=== PATIENT | female | born 2000 | race Asian ===

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

== ENCOUNTER → 2019-01-18 10:42 | Outpatient (CLI) | payer OTHER, SELFPAY ==
[2016-01-09 13:25] VITALS: BMI 20.4
[2019-01-18 12:54] LABS: Absolute Lymphocyte Count 2.13 X10^3/ul (0.83-4.51); Absolute Neutrophil Count 2.2 X10^3/uL (2.0-7.7); Basophil# 0.02 X10^3/uL; Basophil% 0.4 % (0-1); Eosinophil# 0.03 X10^3/uL; Eosinophils% 0.6 % (0-5); Hematocrit 39.2 % (37-47); Hemoglobin 12.7 g/dl (12.0-15.0); Lymphocyte # 2.13 X10^3/ul (4.0); Lymphocyte % 44.7 % (19-41); Mean Corp Hgb Conc 32.4 g/gl (32-36); Mean Corpuscular Hgb 29.7 pg (27.0-32.0); Mean Corpuscular Volume 91.6 fL (81-99); Mean Platelet Vol. 9.1 fl (6.2-12.0); Monocyte# 0.33 X10^3/uL; Monocyte% 6.9 % (0-10); Neutrophil # 2.24 X10^3/uL (2.7-7.7); Neutrophil % 47.2 % (47-70); Platelet Count 350 K/mm3 (150-450); RBC Distribution Width CV 12.9 % (11.6-14.6); RBC Distribution Width SD 43.1 fl (35.1-43.9); Red Blood Count 4.28 M/mm3 (4.2-5.4); White Blood Count 4.8 K/mm3 (4.4-11.0)
[2019-01-18 13:03] LABS: POSITIVE COUNT NO; POSITIVE DIFFERENTIAL NO; POSITIVE MORPHOLOGY NO
[2019-01-18 13:05] LABS: Erythrocyte Sedimentation Rate < 1 mm/hr (0-20)
[2019-01-18 13:16] LABS: Vitamin D,25 Hydroxy 36.2 ng/mL (29.95-100.01)
[2019-01-18 14:08] LABS: AST(SGOT) 14 U/L (15-37); Alanine Aminotransfer ALT/SGPT 16 U/L (13-56); Albumin, Serum 4.1 g/dL (3.2-5.0); Alkaline Phosphatase 49 U/L (45-117); BUN 7 mg/dL (7-18); Creatinine, Serum 0.72 mg/dL (0.55-1.02); EST Glomerular Filtration Rate 110 mL/min (>60); Est Glom Filt Rate - Afr Amer 133 mL/min (>60); Globulin 3.8 g/dL (2.2-4.2); Glucose 58 mg/dL (74-106); Protein, Total 7.9 g/dL (6.4-8.2); Rheumatoid Factor < 10.0 IU/mL (<15); Thyroid Stim Hormone (TSH) 0.83 uIU/mL (0.358-3.74); Uric Acid 3.7 mg/dL (2.6-6.0)
[2019-01-21 13:38] LABS: ANTINUCLEAR ANTIBODIES DIRECT Negative (Negative)
== END ==
PROVIDERS: Family Provider Family Medicine; PCP Family Medicine; Referring Provider Family Medicine; Visit Provider Specialist
DX: L50.9 Urticaria, unspecified (principal); E55.9 Vitamin D deficiency, unspecified; E07.9 Disorder of thyroid, unspecified
CPT/HCPCS: 36415; 80076; 82306; 82565; 82947; 83520; 84443; 84520; 84550; 85025; 85652; 86038; 86431

== ENCOUNTER → 2019-10-22 09:05 | Outpatient (CLI) | payer OTHER, SELFPAY ==
[2016-01-09 13:25] VITALS: BMI 20.4
[2019-10-22 10:16] LABS: Absolute Lymphocyte Count 1.76 X10^3/uL (0.83-4.51); Basophil# 0.03 X10^3/uL; Basophil% 0.5 % (0-1); Eosinophil# 0.44 X10^3/uL; Eosinophils% 7.7 % (0-5); Hematocrit 40.9 % (37-47); Lymphocyte # 1.76 X10^3/ul (4.0); Lymphocyte % 30.9 % (19-41); Mean Corp Hgb Conc 31.8 g/dL (32-36); Mean Corpuscular Hgb 29.9 pg (27.0-32.0); Mean Platelet Vol. 9.7 fl (6.2-12.0); NRBC Flagged by Analyzer 0 % (0-5); Neutrophil # 3.04 X10^3/uL (2.7-7.7); Neutrophil % 53.5 % (47-70); Platelet Count 246 K/mm3 (150-450); RBC Distribution Width CV 12.4 % (11.6-14.6); RBC Distribution Width SD 43.2 fl (35.1-43.9); Red Blood Count 4.35 M/mm3 (4.2-5.4); White Blood Count 5.7 K/mm3 (4.4-11.0)
[2019-10-22 10:48] LABS: Internal QC Validated? YES +Cl - CLEAR BKGD; Monotest Negative (Negative)
[2019-10-22 10:58] LABS: ALB/GLOB Ratio 1.2 RATIO (0.9-2.4); AST(SGOT) 13 U/L (15-37); Alanine Aminotransfer ALT/SGPT 20 U/L (13-56); Albumin, Serum 3.8 g/dL (3.2-5.0); Alkaline Phosphatase 50 U/L (45-117); Anion Gap 9 (5-15); BUN 10 mg/dL (7-18); BUN/Creat Ratio 13.7 RATIO (10-20); CRP < 2.90 mg/L (0.0-3.0); Calcium,Total 8.7 mg/dL (8.5-10.1); Chloride 105 mmol/L (98-107); Creatinine, Serum 0.73 mg/dL (0.55-1.02); EST Glomerular Filtration Rate 108 mL/min (>60); Est Glom Filt Rate - Afr Amer 130 mL/min (>60); Globulin 3.3 g/dL (2.2-4.2); Glucose 82 mg/dL (74-106); Lipase 277 U/L (73-393); Potassium 3.6 mmol/L (3.5-5.1); Protein, Total 7.1 g/dL (6.4-8.2); Sodium Level 140 mmol/L (136-145)
== END ==
PROVIDERS: PCP Family Medicine; Referring Provider Family Medicine; Visit Provider Family Medicine
DX: R10.13 Epigastric pain (principal); K85.90 Acute pancreatitis without necrosis or infection, unspecified
CPT/HCPCS: 36415; 80053; 83690; 85025; 86140; 86308

== ENCOUNTER → 2020-05-14 10:29 | Outpatient (CLI) | payer OTHER, SELFPAY ==
[2019-10-24 14:03] VITALS: BMI 20.4
[2020-05-17 03:07] LABS: Chlamydia By Nucleic Acid AMP Negative (Negative)
[2020-05-17 06:08] LABS: Gonococcus By Nucleic Acid AMP Negative (Negative)
[2020-05-20 17:20] LABS: HPV Reflexed? NOT INDICATED
== END ==
PROVIDERS: PCP Family Medicine; Visit Provider Obstetrics & Gynecology
DX: Z12.4 Encounter for screening for malignant neoplasm of cervix (principal)
CPT/HCPCS: 87491; 87591; 88175; G0145

== ENCOUNTER → 2022-10-07 | Outpatient (CLI) | payer BC, SELFPAY ==
[2022-10-07 11:22] LABS: Erythrocyte Sedimentation Rate 5 mm/hr (0-30)
[2022-10-07 11:24] LABS: Absolute Neutrophil Count 3.1 X10^3/uL (2.0-7.7); Basophil# 0.02 X10^3/uL; Basophil% 0.4 % (0-1); Eosinophil# 0.04 X10^3/uL; Eosinophils% 0.8 % (0-5); Hematocrit 43.5 % (37-47); Hemoglobin 13.9 g/dL (12.0-15.0); Lymphocyte % 30.9 % (19-41); Mean Corpuscular Hgb 29.1 pg (27.0-32.0); Mean Platelet Vol. 8.4 fl (6.2-12.0); Monocyte# 0.37 X10^3/uL; Monocyte% 7.1 % (0-10); NRBC Flagged by Analyzer 0 % (0-5); Neutrophil # 3.13 X10^3/uL (2.7-7.7); Neutrophil % 60.4 % (47-70); Platelet Count 367 K/mm3 (150-450); RBC Distribution Width CV 13.2 % (11.6-14.6); RBC Distribution Width SD 44.1 fl (35.1-43.9); Red Blood Count 4.78 M/mm3 (4.2-5.4); White Blood Count 5.2 K/mm3 (4.4-11.0)
[2022-10-07 11:31] LABS: ALB/GLOB Ratio 1.2 RATIO (0.9-2.4); AST(SGOT) 22 U/L (15-37); Alanine Aminotransfer ALT/SGPT 47 U/L (13-56); Albumin, Serum 4.7 g/dL (3.2-5.0); Alkaline Phosphatase 109 U/L (45-117); Anion Gap 12 (5-15); BUN 14 mg/dL (7-18); BUN/Creat Ratio 17.1 RATIO (10-20); CRP < 2.90 mg/L (0.0-3.0); Calcium,Total 9.5 mg/dL (8.5-10.1); Chloride 99 mmol/L (98-107); Creatinine, Serum 0.82 mg/dL (0.55-1.02); EST Glomerular Filtration Rate 91 mL/min (>60); Est Glom Filt Rate - Afr Amer 111 mL/min (>60); Globulin 3.9 g/dL (2.2-4.2); Glucose 80 mg/dL (74-106); LDH 255 U/L (84-246); Potassium 3.8 mmol/L (3.5-5.1); Protein, Total 8.6 g/dL (6.4-8.2); Sodium Level 136 mmol/L (136-145)
[2022-10-08 14:09] LABS: Anti-Centromere B Ab <0.2 AI (0.0-0.9); Anti-Chromatin <0.2 AI (0.0-0.9); Anti-Jo <0.2 AI (0.0-0.9); Anti-Scleroderma-70 AB <0.2 AI (0.0-0.9); RNP Ab <0.2 AI (0.0-0.9); SJOGREN'S Anti-SS-A test < 0.2 AI (0.0-0.9); SJOGREN'S Anti-SS-B test < 0.2 AI (0.0-0.9); Smith Ab <0.2 AI (0.0-0.9)
[2022-10-08 15:08] LABS: Endomysial Antibody IgA Negative (Negative); Immunoglobulin A 69 mg/dL (87-352)
[2022-10-08 19:41] LABS: t-Transglutaminase IgA <2 U/mL (0-3)
[2022-10-08 19:43] LABS: Anti-dsDNA Ab 1 IU/mL (0-9)
[2022-10-13 15:08] LABS: Albumin 4.5 g/dL (2.9-4.4); Alpha-1-Globulins 0.2 g/dL (0.0-0.4); Alpha-2-Globulins 0.9 g/dL (0.4-1.0); Cytoplasmic Ab (C-ANCA) <1:20 titer (Neg:<1:20); Gamma Globulin 1.3 g/dL (0.4-1.8); Immunoglobulin A 66 mg/dL (87-352); Immunoglobulin E 89 IU/mL (6-495); Immunoglobulin G 1274 mg/dL (586-1602); Immunoglobulin M 121 mg/dL (26-217); PROEL- TOTAL PROTEIN 8.2 g/dL (6.0-8.5)
[2022-10-13 18:50] LABS: Perinuclear Ab (P-ANCA) <1:20 titer (Neg:<1:20)
== END | disposition home or self-care (01) ==
PROVIDERS: PCP Family Medicine; Visit Provider Internal Medicine Gastroenterology
DX: K55.1 Chronic vascular disorders of intestine (principal); K31.84 Gastroparesis
CPT/HCPCS: 36415; 80053; 82784; 82785; 83516; 83615; 84165; 85025; 85652; 86140; 86225; 86235; 86255; 86256; 86334

== ENCOUNTER → 2025-07-04 | Outpatient (CLI) | payer OTHER, SELFPAY ==
--- NOTE | 2025-07-04 07:48 | RAD_ITS ---
PROCEDURE: UPPER GI/W SMALL BOWEL 07/04/2025 REASON FOR EXAM: SMA SYNDROME TECHNIQUE: UPPER GI/W SMALL BOWEL FLUOROSCOPIC TIME: 115 seconds. Dose: 24.6 mGy. COMPARISON: None. FINDINGS: Thoracic and lumbar posterior fixation devices are seen, with apparent separation of the bilateral L3 pedicle screws from the posterior fixation rods. Also, fracture of one of the two L3 pedicle screws is also noted. The esophagus is unremarkable in appearance, without evidence of persistent stenosis or mucosal disease. Within the time of imaging, gastroesophageal reflux was not elicited. The stomach and duodenum show no abnormality. Satisfactory gastric emptying of the liquid contents was seen during this examination. Normal appearance of the jejunum and ileum is seen, without delay in passage. Normal appearance of the terminal ileum is seen. Contrast material is seen within the colon by the 30 minute film. No mass or mass effect is seen. RAD/Upper GI/w Small Bowel IMPRESSION: 1. Negative upper GI series. 2. Unremarkable small-bowel series, with prompt passage of contrast extending t o the colon by 30 minutes. 3. Thoracic and lumbar posterior fixation devices are seen, with apparent separ ation of the bilateral L3 pedicle screws from the posterior fixation rods. Also, fracture of one of the two L3 pedicle screws is also noted. Reading Location: [facility]
--- OUTSIDE RECORDS SUMMARY | 2025-07-04 08:06 | XMS RPT_ITS | CCD ---
Author Organization [facility] Care Team Providers Care Human Resources Temp Name Role Phone IDANIA WRIGHT Unavailable Unavailable REFERRED, SELF Unavailable Unavailable IDANIA WRIGHT Unavailable Unavailable GEOVANI KATHLEEN Unavailable Unavailable REFERRED, SELF Unavailable Unavailable IDANIA WRIGHT Unavailable Unavailable ANNIE SYSTEMS DEVELOPMENT CONSULTANT-TAXATION CONSULTANT, ZARI Rohit Primary Care Physicia n ANNIE SYSTEMS DEVELOPMENT CONSULTANT-TAXATION CONSULTANT, ZARI S Attending Unava ilable ANNIE SYSTEMS DEVELOPMENT CONSULTANT-TAXATION CONSULTANT, [facility] Primary Care Unava ilable ANNIE SYSTEMS DEVELOPMENT CONSULTANT-TAXATION CONSULTANT, ZARI S Attending Unava ilable ANNIE SYSTEMS DEVELOPMENT CONSULTANT-TAXATION CONSULTANT, [facility] S Primary Care Unava ilable Danielle Sandhu Attending Unavailable Moore, Kevin Referring Unavailable Ingold STONE CRUSHER OPERATOR, [facility] Primary Care Unavailable EdsonDanielle Attending Unavailable Moore, Kevin Primary Care Unavailable Moore, Kevin Referring Unavailable EdsonDanielle Referring Unavailable Annie STONE CRUSHER OPERATOR, [facility] Primary Care Unavailable Danielle Sandhu Attending Unavailable EdsonDanielle Attending Unavailable EdsonDanielle Referring Unavailable Ingold STONE CRUSHER OPERATOR, [facility] Primary Care Unavailable Allergies Allergy Classification Reported Allergen(s) Allergy Type Date of Onset Reaction(s) Facility (2 sources) Latex; Translations: [latex] Allergy to substance 5 Skin irritation (disorder) [facility] (1 source) carrot allergenic extract Drug Allergy 5 [facility] (1 source) potato allergenic extract Drug Allergy 5 [facility] (1 source) nut - unspecified Drug allergy (disorder) 5 [facility] Medications Current Medications Medication Drug Class(es) Dates Sig (Normalized) Sig (Original) Dulcolax Laxative (1 source) Start: 03-14-2025 Dulcolax Laxative mg =, qDay, prn, 0 Refill(s) Start Date: 03/14/25 Status: Ordered Repeat number: 1 magnesium oxide 250 mg oral tablet (1 source) Start: 03-14-2025 take 1 mg by mouth once daily Magnesium 250 mg tablet mg = tab(s), Oral, qDay, 0 Refill(s) Start Date: 03/14/25 Status: Ordered Repeat number: 1 ondansetron 4 mg disintegrating oral tablet (1 source) Serotonin-3 Receptor Antagonist Start: 03-14-2025 ondansetron 4 mg oral tablet, disintegrating Dose : 4 mg = 1 tab(s), Oral, q8h, PRN Nausea/Vomiting, # 20 tab(s), 3 Refill(s), Pharmacy: [id number], 157, cm, 03/14/25 8:28:00 EDT, Height, kg, 03/14/25 8:28:00 EDT, Dosing Weight Start Date: 03/14/25 Status: Ordered Quantity: 20.0 Unit: tab(s) Repeat number: 4 polyethylene glycol 3350 84841 mg powder for oral solution (1 source) Osmotic Laxative Start: 03-14-2025 take 17 doses by mouth twice daily as needed MiraLax oral powder for reconstitution Dose : 17 gram(s) =, Oral, BID, prn, # 238 gram(s), 0 Refill(s) Start Date: 03/14/25 Status: Ordered Quantity: 238.0 Unit: g Repeat number: 1 SUMAtriptan 50 mg oral tablet (1 source) Serotonin-1b and Serotonin-1d Receptor Agonist Start: 03-14-2025 SUMAtriptan 50 mg oral tablet Dose : 50 mg = 1 tab(s), Oral, qDay, PRN as needed for migraine headache, 1 tab onset , may repeat in 2 hrs. MAX 4 tab(s)/24hrs, # 9 tab(s), 3 Refill(s), Pharmacy: [id number], 157, cm, 03/14/25 8:28:00 EDT, Height, kg, 03/14/25 8:28:00 EDT, Dosing Weight Start Date: 03/14/25 Status: Ordered Quantity: 9.0 Unit: tab(s) Repeat number: 4 Problems Problem Classification Problem Date Documented Da te Episodic/Chronic Headache; including migraine (1 source) Migraine 03-14-2025 Chronic Nausea and vomiting (2 sources) Nausea with vomiting, unspecified; Translations: [Nausea with vomiting, unspecified] Onset: 06-17-2025 Episodic Other acquired deformities (1 source) Scoliosis deformity of spine 03-14-2025 Chronic Other bone disease and musculoskeletal deformities (1 source) Osteopenia 03-14-2025 Episodic Other disorders of stomach and duodenum (1 source) Gastroparesis syndrome 03-14-2025 Episodic Other disorders of stomach and duodenum (2 sources) Gastroparesis; Translations: [Gastroparesis] Onset: 06-17-2025 Episodic Other gastrointestinal disorders (2 sources) Abdominal distension (gaseous); Translations: [Abdominal distension (gaseous)] Onset: 06-17-2025 Episodic Peripheral and visceral atherosclerosis (1 source) 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 Results Test Name Value Interpretation Reference Range Facility Gastroenterology Visit Repor ton 06-17-2025 Gastroenterology Visit Report [facility] [address] [place] [address] OFFICE VISIT Date of Service: 06/17/25 MR#: [id number] Acct: [id number] Name: JOSE GUARDADO Rep #: [id number] : 2000 Provider: DESIREE kellogg Age/Sex: 25/F Location: [facility] Status: Signed Intake Vital Signs 03/22/25 10:25 06/17/25 09:12 Height 5 ft 1 in 5 ft 1 in Weight: 121 lb 6 oz BMI 22.9 BP 104/72 Respiration 16 Pulse 62 Temp 98.2 F Temp Source Temporal Pulse Oximetry (%) 98 Oxygen Delivery Method room air Intake Visit Reasons: GASTROPARESIS HX OF SMA SYNDROME Chief Complaint: to get established Roll Repairer Required: No Accompanied by: Self Is patient in pain?: No Allergies carrot Allergy (Intermediate, Verified 06/17/25 09:11) Hives latex Allergy (Intermediate, Verified 06/17/25 09:11) Other nut - unspecified Allergy (Intermediate, Verified 06/17/25 09:11) Hives potato Allergy (Intermediate, Verified 06/17/25 09:11) Hives Medications ???Medication ???Instructions ???Recorded ???Confirmed ???Type magnesium oxide 250 mg PO QDAY 04/29/25 06/17/25 H istory ondansetron 4 mg disintegrating 4 mg PO Q8H 04/29/25 06/17/25 Hist ory tablet sumatriptan succinate 50 mg tablet See Rx Instructions PO .COMPLEX 04/29/25 06/17/25 History linaclotide 290 mcg capsule 290 mcg PO QAM #90 caps 06/17/25 1 08/17/24 Rx (Linzess) polyethylene glycol 3350 17 4 g PO ONCE 06/17/25 06/17/25 Hist ory gram/dose oral powder (Miralax) PFSH Medical History Migraines Anxiety MDD (major depressive disorder) PCOS (polycystic ovarian syndrome) Acute insomnia Osteopenia Scoliosis Hx of pancreatitis Ulcer Acid reflux Constipation Nausea Abdominal pain Surgical History History of back surgery Family History Father Hypertension High cholesterol Mother Thyroid disorder Social History household members: family Smoking Status: Never smoker alcohol intake: never substance use type: does not use caffeine: Yes what type of physical activity do you participate in: running, bicycling and weight training frequency: 3-4 times per week seatbelt use: always HPI HPI Chief Complaint: to get established Details: OV Dr. Friend 10/07/2022 JOSE CANELA, is a 22 F who presents to the office today for Initial consult. PMH amenorrhea; osteopenia; PCOS; insomnia; pancreatitis, suspected; gastroparesis. During college () Jose developed abdominal pain, nausea and emesis. These were occurring on a daily basis with increased severity which progressively became worse. She did present to an outside ED where she recalls being told she had pancreatitis, though this diagnosis has since been questioned. Because of the severity of her nausea and emesis she began changing her diet to reduce her symptoms which was helpful. However, this has caused her to avoid a large number of foods and will sometimes utilize a liquid diet only. These dietary changes have resulted in weight loss to 70lbs July,. During workup and seeing specialists she has felt very traumatized as there was much focus on an eating disorder as the primary cause of her symptoms as opposed to a reactionary result of her symptoms. Some imaging as noted below. She additionally reports gastric emptying study and endoscopies, records unavailable. The resulting diagnosis she received from this outside workup is gastroparesis and SMA. Previously utilized medications include Zofran, reglan, scopolamine, Ativan without noticeable improvement. US RUQ 2.8.20 without acute/chronic abnormality. CT abd/pel 2.8.20 moderate gaseous and fluid distention of colon with distention of the stomach and small bowel without inflammatory changes; thickened endometrium. XRay acute abdominal series 2.8.20 without evidence of SBO. MRA abd 2.8.20 aortomesenteric angle 21 degrees and distance 4mm, both measurements below expected findings consistent with SMA. CT abd 12.8.21 without acute/chronic abnormality. Bone Density 12.15.21 with noted osteopenia MRA abd 1.15.22 aortomesenteric angle 21 degrees with distance 4mm, both measurements below expected findings consistent with SMA. *BGI established 2.23.23 with referral from PCP for history as noted above. Nausea continues daily with emesis sometimes occurring multiple times a day; sometimes will go for several days without emesis and early satiety. BM varies between constipation of no BM and diarrhea, dependent on her diet at the time. She is open to seeing mental health services. Weight today 100lbs. (1) (more content not included)... Normal [facility] .Auto Diffon 03-14-2025 Basophil, Absolute 0.0 10 3/mcL Normal 0.0-0.3 [facility] Comment on above: Performed By: #### B 12 #### [facility] [address] [place] [address] #### CMP, CBC, VIDH, ANEU, GFR, ADIFF #### [facility] [address] [place], [place] [address] Basophils/100 WBC (Bld) 0.5 % Normal 0.0-2.5 [facility] Comment on above: Performed By: #### B 12 #### [place] [address] #### CMP, CBC, VIDH, ANEU, GFR, ADIFF #### [address] [address] Eosinophil, Absolute 0.0 10 3/mcL Normal 0.0-0.7 [facility] Comment on above: Performed By: #### B 12 #### [place] [address] #### CMP, CBC, VIDH, ANEU, GFR, ADIFF #### [address] [address] Eosinophils/100 WBC (Bld) 0.3 % Normal 0.0-6.0 [facility] Comment on above: Performed By: #### B 12 #### [place] [address] #### CMP, CBC, VIDH, ANEU, GFR, ADIFF #### [address] [address] Lymphocyte, Absolute 1.8 10 3/mcL Normal 0.9-4.3 [facility] Comment on above: Performed By: #### B 12 #### [place] [address] #### CMP, CBC, VIDH, ANEU, GFR, ADIFF #### [address] [address] Lymphocytes/100 WBC (Bld) 37.2 % Normal 20.0-40.0 [facility] Comment on above: Performed By: #### B 12 #### [place] [address] #### CMP, CBC, VIDH, ANEU, GFR, ADIFF #### [address] [address] Monocyte, Absolute 0.4 10 3/mcL Normal 0.1-1.4 [facility] Comment on above: Performed By: #### B 12 #### [place] [address] #### CMP, CBC, VIDH, ANEU, GFR, ADIFF #### [address] [address] Monocytes/100 WBC (Bld) 8.7 % Normal 2.0-13.0 [facility] Comment on above: Performed By: #### B 12 #### [place] [address] #### CMP, CBC, VIDH, ANEU, GFR, ADIFF #### [address] [address] Neutrophils/100 WBC (Bld) 53.3 % Normal 50.0-75.0 [facility] Comment on above: Performed By: #### B 12 #### [place] [address] #### CMP, CBC, VIDH, ANEU, GFR, ADIFF #### [address] [address] .GFRon 03-14-2025 GFR/1.73 sq M.predicted among non-blacks MDRD (S/P/Bld) [Vol rate/Area] mL/min/{1.73_m2} Normal [facility] Comment on above: Result Comment: Stages of Chronic Kidney Disease (CKD) Stage Description eGFR(ml/min/1.73 sq.m.) CKD 1 Normal kidney function or >=90 normal kindney function with possible kidney damage (ex. Proteinuria) CKD 2 Kidney damage with mild loss 60-89 of kidney function CKD 3a Mild to moderate loss of kidney 45-59 function CKD 3b Moderate to severe loss of 30-44 of kindey function CKD 4 Severe loss of kidney function 15-29 CKD 5 Kidney failure <15 Note: (go live 2024) the eGFR calculation was updated to the 2020 CKD-EPI creatinine equation without a race factor to calculate the eGFR results. Performed By: #### B 12 #### [place] [address] #### CMP, CBC, VIDH, ANEU, GFR, ADIFF #### [address] [address] .NEUABSon 03-14-2025 Neutrophil, Absolute 2.6 10 3/mcL Normal 2.3-8.1 [facility] Comment on above: Performed By: #### B 12 #### [address] [address] #### CMP, CBC, VIDH, ANEU, GFR, ADIFF #### [address] [address] B12on 03-14-2025 Cobalamin (Vitamin B12) [Mass/Vol] 759 pg/mL Normal 211-911 [facility] Comment on above: Performed By: #### B 12 #### [place] [address] #### CMP, CBC, VIDH, ANEU, GFR, ADIFF #### [address] [address] CBCon 03-14-2025 Erythrocyte distribution width (RBC) [Ratio] 17.8 % High 11.5-15.5 [facility] Comment on above: Performed By: #### B 12 #### [place] [address] #### CMP, CBC, VIDH, ANEU, GFR, ADIFF #### [address] [address] Hematocrit (Bld) [Volume fraction] 38.3 % Normal 34.0-46.0 [facility] Comment on above: Performed By: #### B 12 #### [place] [address] #### CMP, CBC, VIDH, ANEU, GFR, ADIFF #### [address] [address] Hgb 12.3 G/dL Normal 12.0-16.0 [facility] Comment on above: Performed By: #### B 12 #### [place] [address] #### CMP, CBC, VIDH, ANEU, GFR, ADIFF #### [address] [address] MCH (RBC) [Entitic mass] 26.5 pg Low 27.0-33.0 [facility] Comment on above: Performed By: #### B 12 #### [place] [address] #### CMP, CBC, VIDH, ANEU, GFR, ADIFF #### [address] [address] MCHC 32.1 G/dL Normal 32.0-36.0 [facility] Comment on above: Performed By: #### B 12 #### [place] [address] #### CMP, CBC, VIDH, ANEU, GFR, ADIFF #### [address] [address] MCV (RBC) [Entitic vol] 82.4 fL Normal 80.0-99.0 [facility] Comment on above: Performed By: #### B 12 #### [place] [address] #### CMP, CBC, VIDH, ANEU, GFR, ADIFF #### [address] [address] Platelet 354 10 3/mcL Normal 150-450 [facility] Comment on above: Performed By: #### B 12 #### [place] [address] #### CMP, CBC, VIDH, ANEU, GFR, ADIFF #### [address] [address] Platelet mean volume (Bld) [Entitic vol] 7.1 fL Normal 6.6-10.5 [facility] Comment on above: Performed By: #### B 12 #### [place] [address] #### CMP, CBC, VIDH, ANEU, GFR, ADIFF #### [address] [address] RBC 4.65 10 6/mcL Normal 4.10-5.30 [facility] Comment on above: Performed By: #### B 12 #### [place] [address] #### CMP, CBC, VIDH, ANEU, GFR, ADIFF #### [address] [address] WBC 4.9 10 3/mcL Normal 4.5-10.8 [facility] Comment on above: Performed By: #### B 12 #### [place] [address] #### CMP, CBC, VIDH, ANEU, GFR, ADIFF #### [address] [address] CMPon 03-14-2025 Albumin Level 4.3 G/dL Normal 3.5-5.0 [facility] Comment on above: Performed By: #### B 12 #### [place] [address] #### CMP, CBC, VIDH, ANEU, GFR, ADIFF #### [address] [address] Albumin/Globulin [Mass ratio] 1.2 {ratio} Normal 1.1-2.5 [facility] Comment on above: Performed By: #### B 12 #### [place] [address] #### CMP, CBC, VIDH, ANEU, GFR, ADIFF #### [address] [address] ALP [Catalytic activity/Vol] 51 U/L Normal 40-135 [facility] Comment on above: Performed By: #### B 12 #### [place] [address] #### CMP, CBC, VIDH, ANEU, GFR, ADIFF #### [address] [address] ALT [Catalytic activity/Vol] 15 U/L Normal 14-59 [facility] Comment on above: Performed By: #### B 12 #### [place] [address] #### CMP, CBC, VIDH, ANEU, GFR, ADIFF #### [address] [address] AST [Catalytic activity/Vol] 6 U/L Low 10-40 [facility] Comment on above: Performed By: #### B 12 #### [place] [address] #### CMP, CBC, VIDH, ANEU, GFR, ADIFF #### [address] [address] Bili Total 0.6 mg/dL Normal 0.2-1.0 [facility] Comment on above: Result Comment: Use of this assay is not recommended for patients undergoing treatment with eltrombopag due to the potential for falsely elevated results. Performed By: #### B 12 #### [place] [address] #### CMP, CBC, VIDH, ANEU, GFR, ADIFF #### [place] [id number] BUN/Creatinine Ratio 21 ratio Normal 7-27 [facility] Comment on above: Performed By: #### B 12 #### [place] [address] #### CMP, CBC, VIDH, ANEU, GFR, ADIFF #### [address] [address] Calcium [Mass/Vol] 9.1 mg/dL Normal 8.4-10.2 [facility] Comment on above: Performed By: #### B 12 #### [place] [address] #### CMP, CBC, VIDH, ANEU, GFR, ADIFF #### [place] [id number] Chloride [Moles/Vol] 104 mmol/L Normal 98-107 [facility] Comment on above: Performed By: #### B 12 #### [place] [address] #### CMP, CBC, VIDH, ANEU, GFR, ADIFF #### [address] [address] CO2 [Moles/Vol] 27 mmol/L Normal 22-29 [facility] Comment on above: Performed By: #### B 12 #### [place] [address] #### CMP, CBC, VIDH, ANEU, GFR, ADIFF #### [address] [address] Creatinine [Mass/Vol] 0.71 mg/dL Normal 0.51-0.95 [facility] Comment on above: Performed By: #### B 12 #### [place] [address] #### CMP, CBC, VIDH, ANEU, GFR, ADIFF #### [address] [address] Electrolyte Balance 9.0 mEq/L Normal 4.0-15.0 [facility] Comment on above: Performed By: #### B 12 #### [place] [address] #### CMP, CBC, VIDH, ANEU, GFR, ADIFF #### [address] [address] Globulin 3.6 G/dL Normal 2.7-4.4 [facility] Comment on above: Performed By: #### B 12 #### [place] [address] #### CMP, CBC, VIDH, ANEU, GFR, ADIFF #### [address] [address] Glucose [Mass/Vol] 86 mg/dL Normal 70-105 [facility] Comment on above: Performed By: #### B 12 #### [place] [address] #### CMP, CBC, VIDH, ANEU, GFR, ADIFF #### [address] [address] Potassium [Moles/Vol] 4.1 mmol/L Normal 3.5-5.1 [facility] Comment on above: Performed By: #### B 12 #### [address] [address] #### CMP, CBC, VIDH, ANEU, GFR, ADIFF #### [address] [address] Sodium [Moles/Vol] 140 mmol/L Normal 136-145 [facility] Comment on above: Performed By: #### B 12 #### [place] [address] #### CMP, CBC, VIDH, ANEU, GFR, ADIFF #### [address] [address] Total Protein 7.9 G/dL Normal 6.4-8.2 [facility] Comment on above: Performed By: #### B 12 #### [place] [address] #### CMP, CBC, VIDH, ANEU, GFR, ADIFF #### [address] [address] Urea nitrogen [Mass/Vol] 15 mg/dL Normal 7-18 [facility] Comment on above: Performed By: #### B 12 #### [place] [address] #### CMP, CBC, VIDH, ANEU, GFR, ADIFF #### [address] [address] LABORATORYOrdered By: SYSTEM SYSTEM on 03-14-2025 25-hydroxyvitamin D3 [Mass/Vol] 48.4 ng/mL Invalid Interpretation Code AO ADM SS Comment on above: Interpretive Data: I nterpretive Values Based on Total 25(OH) Vitamin D: Deficient <20 ng/mL Insufficient 20 - <30 ng/mL Sufficient 30-100 ng/mL Albumin BCP dye [Mass/Vol] 4.3 G/dL Normal 3.5 - 5.0 G/dL AO ADM SS Albumin/Globulin [Mass ratio] 1.2 {ratio} Normal 1.1 - 2.5 ratio AO ADM SS ALP [Catalytic activity/Vol] 51 U/L Normal 40 - 135 U/L AO ADM SS ALT With P-5'-P [Catalytic activity/Vol] 15 U/L Normal 14 - 59 U/L AO ADM SS AST With P-5'-P [Catalytic activity/Vol] 6 U/L Low 10 - 40 U/L AO ADM SS Basophils (Bld) [#/Vol] 0.0 103/mcL Normal 0.0 - 0.3 10^3/mcL AO Workflow SS Basophils/100 WBC (Bld) 0.5 % Normal 0.0 - 2.5 % AO Workflow SS Bilirubin [Mass/Vol] 0.6 mg/dL Normal 0.2 - 1 .0 mg/dL AO ADM SS Comment on above: Interpretive Data: U se of this assay is not recommended for patients undergoing treatment with eltrombopag due to the potential for falsely elevated results. Calcium [Mass/Vol] 9.1 mg/dL Normal 8.4 - 10. 2 mg/dL AO ADM SS Chloride [Moles/Vol] 104 mmol/L Normal 98 - 10 7 mmol/L AO ADM SS CO2 [Moles/Vol] 27 mmol/L Normal 22 - 29 mmol/L AO ADM SS Cobalamin (Vitamin B12) [Mass/Vol] 759 pg/mL Normal 211 - 911 pg/mL AH ADM SS Creatinine [Mass/Vol] 0.71 mg/dL Normal 0.51 - 0.95 mg/dL AO ADM SS Electrolyte Balance 9.0 mEq/L Normal 4.0 - 15 .0 mEq/L AO ADM SS Eosinophil, Absolute 0.0 103/mcL Normal 0.0 - 0 .7 10^3/mcL AO Workflow SS Eosinophils/100 WBC (Bld) 0.3 % Normal 0.0 - 6.0 % AO Workflow SS Erythrocyte distribution width (RBC) [Ratio] 17.8 % High 11.5 - 15.5 % AO Workflow SS Estimated Glomerular Filtration Rate ml/min/1.73sqm Invalid Interpretation Code AO Chemistry S Comment on above: Interpretive Data: Stages of Chronic Kidney Disease (CKD) Stage Description eGFR(ml/min/1.73 sq.m.) CKD 1 Normal kidney function or >=90 normal kindney function with possible kidney damage (ex. Proteinuria) CKD 2 Kidney damage with mild loss 60-89 of kidney function CKD 3a Mild to moderate loss of kidney 45-59 function CKD 3b Moderate to severe loss of 30-44 of kindey function CKD 4 Severe loss of kidney function 15-29 CKD 5 Kidney failure <15 Note: (go live 2024) the eGFR calculation was updated to the 2020 CKD-EPI creatinine equation without a race factor to calculate the eGFR results. Globulin 3.6 G/dL Normal 2.7 - 4.4 G/dL AO ADM SS Glucose [Mass/Vol] 86 mg/dL Normal 70 - 105 mg/dL AO ADM SS Hematocrit (Bld) [Volume fraction] 38.3 % Normal 34.0 - 46.0 % AO Workflow SS Hemoglobin (Bld) [Mass/Vol] 12.3 G/dL Normal 12.0 - 16.0 G/dL AO Workflow SS Lymphocytes (Bld) [#/Vol] 1.8 103/mcL Normal 0.9 - 4.3 10^3/mcL AO Workflow SS Lymphocytes/100 WBC (Bld) 37.2 % Normal 20.0 - 40.0 % AO Workflow SS MCH (RBC) [Entitic mass] 26.5 pg Low 27.0 - 33.0 pg AO Workflow SS MCHC 32.1 G/dL Normal 32.0 - 36.0 G/dL AO Workflow SS MCV (RBC) [Entitic vol] 82.4 fL Normal 80.0 - 99.0 fL AO Workflow SS Monocytes (Bld) [#/Vol] 0.4 103/mcL Normal 0.1 - 1.4 10^3/mcL AO Workflow SS Monocytes/100 WBC (Bld) 8.7 % Normal 2.0 - 13.0 % AO Workflow SS Neutrophils (Bld) [#/Vol] 2.6 103/mcL Normal 2.3 - 8.1 10^3/mcL AO Workflow SS Neutrophils/100 WBC (Bld) 53.3 % Normal 50.0 - 75.0 % AO Workflow SS Platelet mean volume (Bld) [Entitic vol] 7.1 fL Normal 6.6 - 10.5 fL AO Workflow SS Platelets (Bld) [#/Vol] 354 103/mcL Normal 150 - 450 10^3/mcL AO Workflow SS Potassium [Moles/Vol] 4.1 mmol/L Normal 3.5 - 5.1 mmol/L AO ADM SS Protein [Mass/Vol] 7.9 G/dL Normal 6.4 - 8.2 G/dL AO ADM SS RBC (Bld) [#/Vol] 4.65 106/mcL Normal 4.10 - 5.3 0 10^6/mcL AO Workflow SS Sodium [Moles/Vol] 140 mmol/L Normal 136 - 145 mmol/L AO ADM SS Urea nitrogen [Mass/Vol] 15 mg/dL Normal 7 - 18 mg/dL AO ADM SS Urea nitrogen/Creatinine [Mass ratio] 21 ratio Normal 7 - 27 ratio AO ADM SS WBC (Bld) [#/Vol] 4.9 103/mcL Normal 4.5 - 10.8 10^3/mcL AO Workflow SS VIDHon 03-14-2025 Vit. D 25-Hydroxy 48.4 ng/mL Normal [facility] Comment on above: Result Comment: Inte rpretive Values Based on Total 25(OH) Vitamin D: Deficient <20 ng/mL Insufficient 20 - <30 ng/mL Sufficient 30-100 ng/mL Performed By: #### B 12 #### [address] [address] #### CMP, CBC, VIDH, ANEU, GFR, ADIFF #### [place] [id number] [place], [place] [address] CNOVon 12-17-2020 CNOV Office Visit (UCWSTR ) ----- JAIME CANELA ([id number]) 2000 F Date Time Provider Department 12/17/20 2:30 PM [facility] During your visit today, we recorded the following information about you: Temperature Pulse Respiration Blood pressure 96 degrees 53/minute 16/minute 108/76 Weight 45.7 kg Gisele Gómez APRN.CNP 12/17/2020 2:52 PM Signed ASSESSMENT/PLAN: 1. Eustachian tube dysfunction, left - ICD9: 381.81, ICD10: H69.82 - FLUTICASONE PROPIONATE 50 MCG/ACTUATION NASAL SPRAY,SUSPENSION - Follow-up with your PCP or ENT in 3-5 days if symptoms have not improved or sooner if symptoms worsen - Discussed red flags and need for immediate medical evaluation if any occur. - Discussed supportive care treatment with fluids, rest and analgesia. - Discussed expected course of illness DIETER Cleaning APRN.CNP 12/17/2020 2:59 PM Signed Subjective HPI Jaime Canela is a 20 year old female who presents with a pressure sensation in her left ear since this morning. She denies pain. States it feels like I am flying in a plane. Denies recent URI symptoms. Did have a slight headache the last 2 days but that has subsided. She has taken Advil at home. Review of Systems Constitutional: Negative for chills and fever. HENT: Positive for hearing loss. Negative for congestion, ear pain, sore throat and tinnitus. Respiratory: Negative for cough. Cardiovascular: Negative. Musculoskeletal: Negative for myalgias. Neurological: Positive for headaches. BP 108/76 Pulse (!) 53 Temp (!) 35.6 ?C (96 ?F) (Left Tympanic) Resp 16 Wt 45.7 kg (100 lb 12.8 oz) LMP 10/14/2015 SpO2 99% PAST MEDICAL HISTORY Diagnosis Date - NEGATIVE MEDICAL HISTORY PAST SURGICAL HISTORY Procedure Laterality Date - BACK SURGERY HX for scoliosis ALLERGIES Patient has no known allergies. MEDICATIONS fluticasone (FLONASE) 50 mcg/actuation nasal spray Use 2 Sprays in each nostril once daily. Rinse mouth after use. VENLAFAXINE HCL (EFFEXOR XR ORAL) Take 1 tablet by mouth once daily. No family history on file. Social History Tobacco Use - Smoking status: Never Smoker - Smokeless tobacco: Never Used Substance Use Topics - Alcohol use: Not on file - Drug use: Not on file Objective Physical Exam Vitals and nursing note reviewed. Constitutional: Appearance: Normal appearance. HENT: Right Ear: Hearing, tympanic membrane, ear canal and external ear normal. Left Ear: Tympanic membrane, ear canal and external ear normal. Decreased hearing noted. Tympanic membrane is not injected or erythematous. Nose: Nose normal. Cardiovascular: Rate and Rhythm: Normal rate. Pulmonary: Effort: Pulmonary effort is normal. Skin: General: Skin is warm and dry. Neurological: Mental Status: She is alert and oriented to person, place, and time. ASSESSMENT/PLAN: 1. Eustachian tube dysfunction, left - ICD9: 381.81, ICD10: H69.82 - FLUTICASONE PROPIONATE 50 MCG/ACTUATION NASAL SPRAY,SUSPENSION - Follow-up with your PCP or ENT in 3-5 days if symptoms have not improved or sooner if symptoms worsen - Discussed red flags and need for immediate medical evaluation if any occur. - Discussed supportive care treatment with fluids, rest and analgesia. - Discussed expected course of illness Gisele Gómez APRN.TAXATION CONSULTANT Referring Provider: SELF [[id number]] Allergies As of Date: 12/17/2020 (No Known Allergies) Date Reviewed: 12/17/2020 Reviewed by: Soo Harvey Ma - Fully Assessed Reason for Visit: Ear Problem [38] Cmt: LEFT ear pressure x this AM with intermittent ZUNIGA x 2 days Primary Visit Diagnosis:Eustachian tube dysfunction, left [H69.82] Order(s):fluticasone (FLONASE) 50 mcg/actuation nasal sprayUse 2 Sprays in each nostril once daily. Rinse mouth after use.Disp: 1 BottleRfl: 11 Prescriptions as of 12/17/2020 Sig: FLUTICASONE PROPIONATE 50 MCG* Use 2 Sprays in each nostril * EFFEXOR XR ORAL Take 1 tablet by mouth once d* Patient not taking: Reported on 12/17/2020 Problem List As Of Date: 12/17/2020 (None) Other instructions from your clinician: ASSESSMENT/PLAN: 1. Eustachian tube dysfunction, left - ICD9: 381.81, ICD10: H69.82 - FLUTICASONE PROPIONATE 50 MCG/ACTUATION NASAL SPRAY,SUSPENSION - Follow-up with your PCP or ENT in 3-5 days if symptoms have not improved or sooner if symptoms worsen - Discussed red flags and need for immediate medical evaluation if any occur. - Discussed supportive care treatment with fluids, rest and analgesia. - Discussed expected course of illness Gisele Gómez APRN.TAXATION CONSULTANT Prescriptions ordered this encounter Disp Refills Start End FLUTICASONE PROPIONATE 50 MCG/ACTUAT* 1 Timo* 11 12/17/2020 Route: EACH NOSTRIL Sig: Use 2 Sprays in each nostril once daily. Rinse mouth after use. Disposition: Return if symptoms worsen or fail to (more content not included)... Normal [facility] Progress Noteon 03-07-2017 Bartender Authentication Interface Message Text Patient ID: Jaime Canela is a 16 y.o. female. Her chief complaint(s) include: 16YEAR WELL CHILD.Assessment:1. Encounter for routine child health examination without abnormal findings2. Exercise counseling3. Encounter for dietary counseling and surveillance4. Adolescent idiopathic scoliosis of thoracolumbar regionPlan:Jaime was seen today for 16 year well child.Diagnoses and all orders for this visit:Encounter for routine child health examination without abnormal findings- Behavioral/Emotional Assessment w Score - PHQ-9Exercise counselingEncounter for dietary counseling and surveillanceAdolescent idiopathic scoliosis of thoracolumbar regionPatient currently doing well. Denies any issues with depression or suicidalideations at this time. Instructed patient to monitor her moods closely andseek help if noting any difficulties.Instructed patient to contact health department to review whether any additionalvaccines would be required since going to school in [facility].Scoliosis is stable at this time. No additional studies needed.Return in about 1 year (around 03/07/2018) for well check.Subjective:The patient's reason for visit is Well Check 16 Year. She is accompanied by hermother.16 YEAR WELL CHILDHome:Jaime has an adult to turn to for help and is permitted and able to makeindependent decisions. Jaime does not eat meals with family and has no homerisk identified.Education:She Is in 12th grade and is doing well, is meeting expectations, is gettingalong with peers and earns A's & B's. (Completed 12th grade[place]Eating:Jaime eats regular meals including fruits and vegetables, eats breakfast, limitsfast food, drinks non-sweetened liquids and has a calcium source. Has concernsabout body appearance: yogurt.Activities & Sports:She performs at least 1 hour of physical activity daily. She engages in screentime more than 2 hours daily. Music programs: used to play violin.Drugs:She does not use tobacco, does not use drugs and does not use alcohol.Safety:She has a violence free home and has peer relationships free from violence. Shedoes not use helmet, does not use seat belt and does not use phone/text whiledriving.Sex:STD screening offered and declined.Suicidality:She does not have ways to cope with stress, does not display self-confidence,has no problems with sleep, has no depression, has no anxiety, does not havemood swings, has no suicidal ideation, has no homicidal ideation and has nomental health risk identified.MenstruationLa st Menstrual period: LMP from Jaylene's last menstrual period was 02/21/2017 (approximate)..(Menarche: age 11 years)Menstruation: regular periods and minimal crampingOutputUrine and Stool Pattern:Urine and Stool Pattern: Normal stool pattern, normal urine pattern, nonocturnal enuresis.Stool Consistency: softSleepSleeping Difficulty: no difficulty sleepingHours of sleep at a time: 6 (to 7 hours)Teen Anticipatory GuidanceThe following anticipatory guidance was reviewed during the visit:Nutrition: limit junk food/fast food and soft drinks.Social: avoid or limit screen time and parental limits and consequences forunacceptable behavior.Health: age appropriate dental care, age appropriate sleep habits, elevatednoise and hearing, avoid situations where drugs and alcohol are present,practice abstinence- the safest way to prevent and STDs, talk withtrusted adult if feeling sad or nervous and be responsible for attendance/homework/ course selection.CRAFFT AssessmentHas not used alcohol or other drugs.Has not ridden in a CAR driven by someone (including self) who was high orhad been using alcohol or drugs.ScreeningsPrevious Vaccine Reactions: No.Tuberculosis Concerns:Negative Tuberculosis Screen Concerns: no exposure to Tb or person with positiveppdHearing Vision Concerns:The caregiver has no concerns about the patient's hearing.The caregiver has no concerns about the patient's vision.Hyperlipidemia Concerns:Negative Hyperlipidemia Screen Concerns: no parent or grandparent with MS anginaperipheral or cerebrovascular disease <55 years and no parent with cholesterol>240mg/dlPrima Care Review of SystemsObjective:Physical ExamConstitutional: She appears well. She is active. No distress.HENT:Head: Atraumatic.Right Ear: Tympanic membrane and external ear normal.Left Ear: Tympanic membrane and external ear normal.Nose: Nose normal.Mouth/Throat: Mucous membranes are moist. Dentition is normal. Oropharynx isclear.Eyes: Conjunctivae and EOM are normal. No strabismus. Pupils are equal, round,and reactive to light.Neck: Normal range of motion. Neck supple. Thyroid normal. No adenopathy.Cardiovascular : Normal rate, regular rhythm, S1 normal and S2 normal. Pulsesare palpable.No murmur heard.Pulmonary/Chest: Breath sounds normal. No respiratory distress. Exhibits nodeformity.Abdominal: Soft. Bowel sounds are normal. She exhibits no distension and nomass. There is no hepatosplenomegaly. There is no tenderness.Musculoskeleta l: Normal range of motion. Back: She exhibits scoliosis (surgically repaired--well healed scar).Neurological: She is alert. She has normal strength. She exhibits normal muscletone. Gait normal.Skin: Rash (comedomal acne on face.) noted. No pallor.Hypopigmented area lateral aspect of knee on right leg Skin is warm.Vitals reviewed: Blood pressure 94/62, pulse 65, height 158.5 cm, weight 52.9kg, last menstrual period 02/21/2017. Normal [facility] Encounters Encounter Date Encounter Type Care Provider Facility Start: 07-10-2025 ambulatory Danielle Groves ty:[facility] Start: 07-04-2025 ambulatory Danielle Groves ty:[facility] Start: 06-17-2025 End: 06-17-2025 ambulatory Danielle Sandhu Facility:[facility] Start: 05-28-2025 ambulatory Danielle Groves ty:[facility] Start: 05-15-2025 ambulatory ZARI MCFARLAND [employer] DEVELOPMENT CONSULTANT-TAXATION CONSULTANT Facility:[facility] Start: 03-14-2025 End: 03-14-2025 ambulatory ZARI VALENCIA [employer] DEVELOPMENT CONSULTANT-TAXATION CONSULTANT Facility:[facility] Start: 03-14-2025 End: 03-14-2025 Patient encounter procedure ZARI [employer] DEVELOPMENT CONSULTANT-TAXATION CONSULTANT [facility] Start: 06-04-2017 Ambulatory GEOVANI KATHLEEN [facility] Start: 03-07-2017 End: 03-07-2017 Ambulatory IDANIA WRIGHT [facility] Immunizations Immunization Date Immunization Notes Care Provider Kamaljit stokes 07-14-2023 influenza virus vaccine, unspecified formulation ZARI ANNIE [employer] DEVELOPMENT CONSULTANT-TAXATION CONSULTANT [facility] Payers Date Payer Category Payer Unknown [id number] 2025 Self-pay 2025 Private Health Insurance [id number] 2025 Unknown [id number] 1999 Unknown [id number] [id number]. [id number] 1999 Unknown [id number] 2.16. [id number] Unknown [id number] Unknown [id number] 2.16.8 [id number] Unknown [id number] 2.16.8 [id number] Unknown [id number] 2.16.8 [id number] Unknown [id number] 2.16.8 [id number] Social History Date Type Detail Facility Start: 03-14-2025 Tobacco smoking status Never s moked tobacco (finding) [facility] Sexual Orientation [facility] Sex Assigned At Female [facility] Sex Female (finding) [facility] pital Evaluation + Plan note 03-14-2025 Radiology Note Date & Type Note Facility 03-14-2025 Evaluation + Plan note Future Scheduled TestsBD Bone Density DEXA Axial Skeleton Adult (21 yrs or older) 03/14/25 [facility] Progress note 12-17-2020 Note Date & Type Note Facility 12-17-2020 Note HNO ID: [id number] Author: Gisele Gómez APRN.[facility] Service: ? Author Type: Nurse Practitioner Type: Progress Notes Filed: 12/17/2020 2:59 PM Note Text: Subjective HPI Jaime Canela is a 20 year old female who presents with a pressure sensation in her left ear since this morning. She denies pain. States it feels like I am flying in a plane. Denies recent URI symptoms. Did have a slight headache the last 2 days but that has subsided. She has taken Advil at home. Review of Systems Constitutional: Negative for chills and fever. HENT: Positive for hearing loss. Negative for congestion, ear pain, sore throat and tinnitus. Respiratory: Negative for cough. Cardiovascular: Negative. Musculoskeletal: Negative for myalgias. Neurological: Positive for headaches. BP 108/76 Pulse (!) 53 Temp (!) 35.6 ?C (96 ?F) (Left Tympanic) Resp 16 Wt 45.7 kg (100 lb 12.8 oz) LMP 10/14/2015 SpO2 99% PAST MEDICAL HISTORY Diagnosis Date - NEGATIVE MEDICAL HISTORY PAST SURGICAL HISTORY Procedure Laterality Date - BACK SURGERY HX for scoliosis ALLERGIES Patient has no known allergies. MEDICATIONS fluticasone (FLONASE) 50 mcg/actuation nasal spray Use 2 Sprays in each nostril once daily. Rinse mouth after use. VENLAFAXINE HCL (EFFEXOR XR ORAL) Take 1 tablet by mouth once daily. No family history on file. Social History Tobacco Use - Smoking status: Never Smoker - Smokeless tobacco: Never Used Substance Use Topics - Alcohol use: Not on file - Drug use: Not on file Objective Physical Exam Vitals and nursing note reviewed. Constitutional: Appearance: Normal appearance. HENT: Right Ear: Hearing, tympanic membrane, ear canal and external ear normal. Left Ear: Tympanic membrane, ear canal and external ear normal. Decreased hearing noted. Tympanic membrane is not injected or erythematous. Nose: Nose normal. Cardiovascular: Rate and Rhythm: Normal rate. Pulmonary: Effort: Pulmonary effort is normal. Skin: General: Skin is warm and dry. Neurological: Mental Status: She is alert and oriented to person, place, and time. ASSESSMENT/PLAN: 1. Eustachian tube dysfunction, left - ICD9: 381.81, ICD10: H69.82 - FLUTICASONE PROPIONATE 50 MCG/ACTUATION NASAL SPRAY,SUSPENSION - Follow-up with your PCP or ENT in 3-5 days if symptoms have not improved or sooner if symptoms worsen - Discussed red flags and need for immediate medical evaluation if any occur. - Discussed supportive care treatment with fluids, rest and analgesia. - Discussed expected course of illness Gisele Gómez APRN.CNP [facility] course Narrative Note Date & Type Note Facility Hospital course Narrative No data available for this section [facility] Hospital Discharge instructions Note Date & Type Note Facility Hospital Discharge instructions No data available for this section [facility] Progress note Note Date & Type Note Facility Progress note No data available for this section [facility] Summary Purpose Family History No Family History Records FoundNo Family History Records Found No data available for this section No Family History Records FoundNo Family History Records Found Advance Directives No Advanced Directives Records FoundNo Advanced Directives Records FoundNo Advanced Directives Records FoundNo Advanced Directives Records Found Additional Source Comments INFORMATION SOURCE (unrecogn ized section and content) DATE CREATED AUTHOR 02/07/2018 [facility] DATE CREATED AUTHOR AUTHOR'S ORGANIZ ATION 09/03/2021 [facility] DATE CREATED AUTHOR AUTHOR'S ORGANIZ ATION 05/20/2025 [facility] DATE CREATED AUTHOR AUTHOR'S ORGANIZ ATION 06/21/2025 [facility] Patient Care team informatio n (unrecognized section and content) Care Team Personnel Name: ZARI VALENCIA APRN-TAXATION CONSULTANT Position: P4 Advanced Wharf Helper Member Role: Primary Care Physician Address: [address] [facility] [place] [address]- [place] [employer]: Care Team Related Persons Name: BOBBY GUARDADO FOR RECORDS PERTAINING TO PATIENTS WHO ARE OR HAVE BEEN ENROLLED IN A CHEMICAL DEPENDENCY/SUBSTANCEABUSE PROGRAM, SOME INFORMATION MAY BE OMITTED. This clinical summary was aggregated from multiple sources. Caution should be exercised in using it in the provision of clinical care. This summary normalizes information from multiple sources, and as a consequence, information in this document may materially change the coding, format and clinical context of patient data. In addition, data may be omitted in some cases. CLINICAL DECISIONS SHOULD BE BASED ON THE PRIMARY CLINICAL RECORDS. [facility] [employer] [facility]. provides no warranty or guarantee of the accuracy or completeness of information in this document.
== END | disposition home or self-care (01) ==
PROVIDERS: PCP Nurse Practitioner Primary Care; Referring Provider Nurse Practitioner Acute Care; Visit Provider Nurse Practitioner Acute Care
DX: K31.84 Gastroparesis (principal); R11.2 Nausea with vomiting, unspecified; R14.0 Abdominal distension (gaseous)
CPT/HCPCS: 74246; 74248